=== PATIENT | female | born 1965 | race Caucasian/White ===

== ENCOUNTER 2016-06-26 17:05 | Emergency (ER) | payer BC ==
--- NOTE | 2016-06-26 17:25 | ED NURSING NOTES ---
Clinical Report - Nurses [facility] [address] [place] [address] 06/26/2016 17:06 Patient: SANDOR WAGGONER V TRIAGE Triage time 17:15 Jun 26 2016. Acuity: LEVEL 4. Chief Complaint: RIGHT EAR PAIN and SINUS CONGESTION. Alert. --17:22 Sparkle Vega R.N. 17:15 06/26/16. BP: 149/78. HR: 89. RR: 16. O2 saturation: 98%. Temp: 97.8 F. Pain level now: 11/09. --17:22 Sparkle Vega R.N. Weight: 104.3 kg stated. Height/Length: 66 inches Per Patient. BMI: 37.1. --17:21 Sparkle Vega R.N. Medications Advil Oral. --17:16 Sparkle Vega R.N. Allergies None. --17:29 Sparkle Vega R.N. The following entry was struck by Maggie Pagan P.A.-C, 17:24 (06/26/16) Reason - other(patient developes side effects: n/v/d). <<STRICKEN ENTRY-- Penicillin. --17:16 Sparkle Vega R.N. --END STRIKE>>. History Arrived by private vehicle. Historian: patient. Onset. (about 1 weeks ago). She has had a nasal discharge, a sore throat, fever and sinus pain. ( eye drainage). PAST MEDICAL HX: Immunizations: up-to-date. Last normal menstrual period- about 2 years ago. SOCIAL HX: Never smoker. Occasional alcohol use. No drug use. No infectious disease exposure. SELF HARM ASSESSMENT: A self harm assessment was performed. The patient answered "no" to the question "Do you have thoughts of harming or killing yourself?". FALL RISK ASSESSMENT: Fall risk assessment completed. No fall risk identified. NUTRITIONAL RISK ASSESSMENT: The nutritional risk assessment revealed no deficiencies. FUNCTIONAL ASSESSMENT: Functional assessment: no impairments noted. LEARNING NEEDS ASSESSMENT: The learning needs assessment revealed no barriers. ABUSE ASSESSMENT: Abuse assessment: The patient was asked "Do you feel safe in your home?". SKIN INTEGRITY ASSESSMENT: Skin integrity risk assessment completed. No skin integrity risk identified. --17:22 Sparkle Vega R.N. PROBLEMS: Dental Caries. Dental Pain. Immunizations. LNMP - Last Normal Menstrual Period. --17:16 Sparkle Vega R.N. ADDITIONAL SURGERIES: Nasal septoplasty. Nose. Repair cleft palate. Tonsillectomy. --17:17 Sparkle Vega R.N. Interventions ID band on patient. To room. --17:22 Sparkle Vega R.N. PHYSICAL ASSESSMENT GENERAL / NEURO / PSYCH: Alert. Appears in no acute distress. HEENT: No facial asymmetry noted. Pupils equal, round and reactive to light. Runny nose. RESPIRATORY: Respirations not labored. CVS: Capillary refill less than 2 seconds. SKIN: Skin is warm and dry. --17:24 Sparkle Vega R.N. NURSING PROGRESS NOTES Head of bed elevated. Two patient identifiers checked. Call light placed in reach. Side rails up. Bed placed in lowest position. Brakes of bed on. --17:24 Sparkle Vega R.N. DISPOSITION / DISCHARGE Departure time: 17:28 Jun 26 2016. Condition at departure: unchanged. No learning barriers present. Discharge instructions provided and reviewed with the patient. Reviewed medication(s) side effects, precautions, dosing and course information. Prescription(s) given to the patient. Reviewed referral to a primary care physician for followup. Patient verbalized understanding. Written instructions provided in Latvian. The patient was discharged home. She left the Emergency Department ambulatory and via private vehicle. Patient driving. FALL RISK ASSESSMENT: Fall risk assessment completed. No fall risk identified. --17:28 Sparkle Vega R.N. Locked/Released at 06/26/2016 19:31 by Sparkle Vega R.N.
--- NOTE | 2016-06-26 17:25 | ED CLINICAL REPORT ---
Clinical Report - Physicians/Mid Levels [facility] [address] [place] [address] 06/26/2016 17:06 [id number] Time Seen: 17:24 Jun 26 2016. Arrived- By private vehicle. HISTORY OF PRESENT ILLNESS Chief Complaint: EARACHE. This started 3 days and is still present. Location- right ear. The pain is described as mild. The patient has had ear pain. No ear drainage, complaint of foreign body in the ear, ear trauma, toothache or jaw pain. She has had nasal congestion and a nasal discharge. (patient reports symptoms of cough, fevers 7 days previously, saw her primary care provider on the , and had a negative rapid flu at the time, was sent home, "with nothing". Patient reports she has been taking Tylenol and Motrin off and on since. Denies any new recent fevers. Reports fatigue, decreased appetite. Reports now with rhinorrhea, congestion and otalgia, on the right ear. No drainage. No trauma to the right ear. No tenderness.). REVIEW OF SYSTEMS No fever, chills or nausea. All systems otherwise negative, except as recorded above. PAST HISTORY Problems: Dental Caries. Dental Pain. Immunizations. LNMP - Last Normal Menstrual Period. Additional Surgeries: Nasal septoplasty. Nose. Repair cleft palate. Tonsillectomy. Medications: Advil Oral. SOCIAL HISTORY Never smoker. Alcohol use. No drug use. ADDITIONAL NOTES The nursing notes have been reviewed. PHYSICAL EXAM Vital Signs: 06/26/2016 17:15 BP: 149/78. HR: 89. RR: 16. O2 saturation: 98%. Temp: 97.8 F. Pain level now: 8/10. Appearance: Alert. Ear (right): There is erythema of the tympanic membrane. No bulging of the tympanic membrane. Does not have loss of tympanic membrane landmarks. Light reflex normal. Throat: Pharynx normal. No pharyngeal erythema or mouth ulcerations. Neck: Normal inspection. CVS: Normal heart rate and rhythm. Heart sounds normal. Normal rhythm. Respiratory: No respiratory distress. Back: Normal inspection. Skin: Normal skin color. No rash. Extremities: Extremities exhibit normal ROM. No lower extremity edema. Neuro: Oriented X 3. PROGRESS AND PROCEDURES Course of Care: Patient with negative exam beyond right TM erythema. Afebrile, lungs clear. No meningeal signs. No signs of encephalopathy. Patient stable. Patient with suspected otitis media given her changes of the tympanic membrane, no signs of perforation or swelling or drainage. No facial or sinus pain. Patient stable. Pt requesting azithromycin by name, discussed drug resistance, ideal method of treatment of otitis, and choice of abx, and need to f/u with pcp. Patient is stable. The patient's symptoms are unchanged. CLINICAL IMPRESSION Acute right otitis media. INSTRUCTIONS Drink plenty of fluids. Prescription Medications: Zofran (orally disintegrating tablets) 4 mg: take 1 orally every 6 hours for 3 days as needed for nausea. Dispense ten (10). No refill. Substitution is permissible. Amoxicillin 500 mg tablets: Take 1 orally every 8 hours for 10 days. Dispense thirty (30). No refills. OTC Medications: Take acetaminophen (Tylenol, Datril, etc.) and ibuprofen (Advil, Nuprin, etc.) according to label instructions. Available over the counter. Follow-up: Follow up with your doctor in three days. (Electronically signed by Maggie Pagan P.A.-C 06/26/2016 17:29)
--- NOTE | 2016-06-26 19:31 | ED MAR SUMMARY ---
..... Medication Administration Record [facility] [address] [place], [place] [id number] Patient: SANDOR WAGGONER V Visit ID: [id number] 50y, F Weight: 104.3 kg Height/Length: 66 in BMI: 37.1 ALLERGIES: None
--- NOTE | 2016-06-26 19:31 | ED MED RECONCILIATION SUMMARY ---
Patient: SANDOR WAGGONER V Medication Reconciliation Report [facility] VisitID: [id number] [place] [address] 50y, F Registration Date/Time: 06/26/2016 Weight: 104.3 kg Height/Length: 66 in. BMI: 37.1 ALLERGIES: None The patient's Home Medications are listed below: THE FOLLOWING MEDICATIONS NEED TO BE RECONCILED: Advil Oral The source(s) of the original Home Medication information: Not obtained. The following Medications were given to the patient in the Emergency Department: None. The following Medications were prescribed to the patient: Take acetaminophen (Tylenol, Datril, etc.) and ibuprofen (Advil, Nuprin, etc.) according to label instructions. Available over the counter. -- Maggie Pagan, P.A.-C Zofran (orally disintegrating tablets) 4 mg: take 1 orally every 6 hours for 3 days as needed for nausea. Dispense ten (10). No refill. Substitution is permissible. -- Maggie Pagan, P.A.-C Amoxicillin 500 mg tablets: Take 1 orally every 8 hours for 10 days. Dispense thirty (30). No refills. -- Maggie Pagan, P.A.-C
--- NOTE | 2016-06-26 19:31 | ED DISCHARGE INSTRUCTIONS ---
Patient: SANDOR WAGGONER V General Instructions [facility] VisitID: [id number] [place] [address] 50y, F Registration Date/Time: 06/26/2016 Acute right otitis media. INSTRUCTIONS Drink plenty of fluids. Prescription Medications: Zofran (orally disintegrating tablets) 4 mg: take 1 orally every 6 hours for 3 days as needed for nausea. Dispense ten (10). No refill. Substitution is permissible. Amoxicillin 500 mg tablets: Take 1 orally every 8 hours for 10 days. Dispense thirty (30). No refills. OTC Medications: Take acetaminophen (Tylenol, Datril, etc.) and ibuprofen (Advil, Nuprin, etc.) according to label instructions. Available over the counter. Follow-up: Follow up with your doctor in three days. ADDITIONAL INFORMATION Middle Ear Infection (Adult) You have an infection of the middle ear (the space behind the eardrum). It can occur as a result of the common cold. This is because congestion can block the internal passage (eustachian tube) that drains fluid from the middle ear. When the middle ear fills with fluid, bacteria can grow there and cause an infection. Oral antibiotics are used to treat this illness, not ear drops. Symptoms usually start to improve within 1-2 days of treatment. Home Care: Finish all of the antibiotic medicine prescribed, even though you may feel better after the first few days. You may use acetaminophen (Tylenol) or ibuprofen (Motrin, Advil) to control pain, unless something else was prescribed. [NOTE: If you have chronic liver or kidney disease or have ever had a stomach ulcer or GI bleeding, talk with your doctor before using these medicines.] (Do not give aspirin to anyone under 18 years of age who is ill with a fever. It may cause severe liver damage.) Follow Up with your doctor or this facility in two weeks if all symptoms have not cleared, or if hearing does not return to normal within one month. Get Prompt Medical Attention if any of the following occur: Ear pain gets worse or does not improve after three days of treatment Unusual drowsiness or confusion Neck pain, stiff neck or headache Fluid or blood draining from the ear canal Fever of 100.4F (38C) or higher after 3 days of antibiotics, or as directed by your healthcare provider Convulsion (seizure) Ondansetron Hydrochloride Oral tablet What is this medicine? ONDANSETRON (on MEKHI se woodrow) is used to treat nausea and vomiting caused by chemotherapy. It is also used to prevent or treat nausea and vomiting after surgery. How should I use this medicine? Take this medicine by mouth with a glass of water. Follow the directions on your prescription label. Take your doses at regular intervals. Do not take your medicine more often than directed. Talk to your registered private duty nurse regarding the use of this medicine in children. Special care may be needed. What side effects may I notice from receiving this medicine? Side effects that you should report to your doctor or health associate director career services as soon as possible: allergic reactions like skin rash, itching or hives, swelling of the face, lips or tongue breathing problems dizziness fast or irregular heartbeat feeling faint or lightheaded, falls fever and chills swelling of the hands or feet tightness in the chest Side effects that usually do not require medical attention (report to your doctor or health associate director career services if they continue or are bothersome): constipation or diarrhea headache What may interact with this medicine? Do not take this medicine with any of the following medications: -apomorphine -cisapride -dofetilide -dronedarone -pimozide -thioridazine -ziprasidone This medicine may also interact with the following medications: -carbamazepine -phenytoin -rifampicin -tramadol -other medicines that prolong the QT interval (cause an abnormal heart rhythm) What if I miss a dose? If you miss a dose, take it as soon as you can. If it is almost time for your next dose, take only that dose. Do not take double or extra doses. Where should I keep my medicine? Keep out of the reach of children. Store between 2 and 30 degrees C (36 and 86 degrees F). Throw away any unused medicine after the expiration date. What should I tell my health care provider before I take this medicine? They need to know if you have any of these conditions: heart disease history of irregular heartbeat liver disease low levels of magnesium or potassium in the blood an unusual or allergic reaction to ondansetron, granisetron, other medicines, foods, dyes, or preservatives or trying to get breast-feeding What should I watch for while using this medicine? Check with your doctor or health associate director career services right away if you have any sign of an allergic reaction. You have been given the following additional information: Otitis Media, Abx Tx (Adult) Ondansetron Hydrochloride Oral tablet (Electronically signed by Maggie Pagan P.A.-C 06/26/2016 17:29)
--- NOTE | 2016-06-26 19:31 | ED MAR SUMMARY ---
..... Medication Administration Record [facility] [address] [place], [place] [id number] Patient: SANDOR WAGGONER V Visit ID: [id number] 50y, F Weight: 104.3 kg Height/Length: 66 in BMI: 37.1 ALLERGIES: None
--- NOTE | 2016-06-26 19:31 | ED MED RECONCILIATION SUMMARY ---
Patient: SANDOR WAGGONER V Medication Reconciliation Report [facility] VisitID: [id number] [place] [address] 50y, F Registration Date/Time: 06/26/2016 Weight: 104.3 kg Height/Length: 66 in. BMI: 37.1 ALLERGIES: None The patient's Home Medications are listed below: THE FOLLOWING MEDICATIONS NEED TO BE RECONCILED: Advil Oral The source(s) of the original Home Medication information: Not obtained. The following Medications were given to the patient in the Emergency Department: None. The following Medications were prescribed to the patient: Take acetaminophen (Tylenol, Datril, etc.) and ibuprofen (Advil, Nuprin, etc.) according to label instructions. Available over the counter. -- Maggie Pagan, P.A.-C Zofran (orally disintegrating tablets) 4 mg: take 1 orally every 6 hours for 3 days as needed for nausea. Dispense ten (10). No refill. Substitution is permissible. -- Maggie Pagan, P.A.-C Amoxicillin 500 mg tablets: Take 1 orally every 8 hours for 10 days. Dispense thirty (30). No refills. -- Maggie Pagan, P.A.-C
--- NOTE | 2016-06-26 19:31 | ED DISCHARGE INSTRUCTIONS ---
Patient: SANDOR WAGGONER V General Instructions [facility] VisitID: [id number] [place] [address] 50y, F Registration Date/Time: 06/26/2016 Acute right otitis media. INSTRUCTIONS Drink plenty of fluids. Prescription Medications: Zofran (orally disintegrating tablets) 4 mg: take 1 orally every 6 hours for 3 days as needed for nausea. Dispense ten (10). No refill. Substitution is permissible. Amoxicillin 500 mg tablets: Take 1 orally every 8 hours for 10 days. Dispense thirty (30). No refills. OTC Medications: Take acetaminophen (Tylenol, Datril, etc.) and ibuprofen (Advil, Nuprin, etc.) according to label instructions. Available over the counter. Follow-up: Follow up with your doctor in three days. ADDITIONAL INFORMATION Middle Ear Infection (Adult) You have an infection of the middle ear (the space behind the eardrum). It can occur as a result of the common cold. This is because congestion can block the internal passage (eustachian tube) that drains fluid from the middle ear. When the middle ear fills with fluid, bacteria can grow there and cause an infection. Oral antibiotics are used to treat this illness, not ear drops. Symptoms usually start to improve within 1-2 days of treatment. Home Care: Finish all of the antibiotic medicine prescribed, even though you may feel better after the first few days. You may use acetaminophen (Tylenol) or ibuprofen (Motrin, Advil) to control pain, unless something else was prescribed. [NOTE: If you have chronic liver or kidney disease or have ever had a stomach ulcer or GI bleeding, talk with your doctor before using these medicines.] (Do not give aspirin to anyone under 18 years of age who is ill with a fever. It may cause severe liver damage.) Follow Up with your doctor or this facility in two weeks if all symptoms have not cleared, or if hearing does not return to normal within one month. Get Prompt Medical Attention if any of the following occur: Ear pain gets worse or does not improve after three days of treatment Unusual drowsiness or confusion Neck pain, stiff neck or headache Fluid or blood draining from the ear canal Fever of 100.4F (38C) or higher after 3 days of antibiotics, or as directed by your healthcare provider Convulsion (seizure) Ondansetron Hydrochloride Oral tablet What is this medicine? ONDANSETRON (on MEKHI se woodrow) is used to treat nausea and vomiting caused by chemotherapy. It is also used to prevent or treat nausea and vomiting after surgery. How should I use this medicine? Take this medicine by mouth with a glass of water. Follow the directions on your prescription label. Take your doses at regular intervals. Do not take your medicine more often than directed. Talk to your storeroom attendant regarding the use of this medicine in children. Special care may be needed. What side effects may I notice from receiving this medicine? Side effects that you should report to your doctor or health career development associate as soon as possible: allergic reactions like skin rash, itching or hives, swelling of the face, lips or tongue breathing problems dizziness fast or irregular heartbeat feeling faint or lightheaded, falls fever and chills swelling of the hands or feet tightness in the chest Side effects that usually do not require medical attention (report to your doctor or health career development associate if they continue or are bothersome): constipation or diarrhea headache What may interact with this medicine? Do not take this medicine with any of the following medications: -apomorphine -cisapride -dofetilide -dronedarone -pimozide -thioridazine -ziprasidone This medicine may also interact with the following medications: -carbamazepine -phenytoin -rifampicin -tramadol -other medicines that prolong the QT interval (cause an abnormal heart rhythm) What if I miss a dose? If you miss a dose, take it as soon as you can. If it is almost time for your next dose, take only that dose. Do not take double or extra doses. Where should I keep my medicine? Keep out of the reach of children. Store between 2 and 30 degrees C (36 and 86 degrees F). Throw away any unused medicine after the expiration date. What should I tell my health care provider before I take this medicine? They need to know if you have any of these conditions: heart disease history of irregular heartbeat liver disease low levels of magnesium or potassium in the blood an unusual or allergic reaction to ondansetron, granisetron, other medicines, foods, dyes, or preservatives or trying to get breast-feeding What should I watch for while using this medicine? Check with your doctor or health career development associate right away if you have any sign of an allergic reaction. You have been given the following additional information: Otitis Media, Abx Tx (Adult) Ondansetron Hydrochloride Oral tablet (Electronically signed by Maggie Pagan P.A.-C 06/26/2016 17:29)
== END 2016-06-26 17:08 | disposition home or self-care (01) ==
LOC: ED SRH 17:05
DX: H66.91 Otitis media, unspecified, right ear (principal)